=== PATIENT | male | born 1960 | race Caucasian/White ===

== ENCOUNTER 2020-01-27 20:26 | Emergency (ER) | payer OTHER, SELFPAY ==
--- NOTE | ~2020-01-27 | CT_ITS ---
EXAMINATION: CT abdomen pelvis w con DATE: 01/27/2020 21:10 INDICATION: Right flank pain. TECHNIQUE: Computed tomography (CT) of the abdomen and pelvis was performed without intravenous contr ast. Automated exposure control and iterative reconstruction technique were employed. The dose-length product was 618.22 mGy-cm. COMPARISON: CT abdomen and pelvis 03/21/2018 FINDINGS: The visualized portions of the lung bases demonstrate mild atelectasis. No pleural effusion . The heart size is normal. No pericardial effusion. The liver is normal. There are changes of cholec ystectomy. The spleen, pancreas, and adrenal glands are normal. There are 4 stones in right kidney me asuring up to 2 mm. There is mild right hydronephrosis and hydroureter. There is a 4 mm cyst in left kidney. There is a 2 mm stone in the bladder. There are small bilateral inguinal hernias containing f at. There are no dilated loops of bowel. The appendix is normal. There are no pathologically enlarged lymph nodes. There is no free intraperitoneal fluid. There is mild lumbar spondylosis. IMPRESSION: 1. 2 mm stone in the bladder. Mild right hydronephrosis and hydroureter, likely from recent stone pas chelsy. 2. Small nonobstructing right kidney stones. Reviewed, dictated and finalized at location A. IMPRESSION: 1. 2 mm stone in the bladder. Mild right hydronephrosis and hydroureter, likely from recent stone passage. 2. Small nonobstructing right kidney stones.
[2020-01-27 20:38] VITALS: BP 162/91; PULSE 74; RESP 18; TEMP 36.5; O2SAT 100
--- NOTE | 2020-01-27 20:48 | ED.ABDPAIN ---
HPI - Abdominal Pain General Chief Complaint: Urogenital-Male Stated Complaint: R flank pain Time Seen by Provider: 01/27/20 20:38 History of Present Illness HPI narrative: Patient presents with a friend for right flank pain for an hour and a half. He had a kidney stone 2-1/2 years ago. He has had several kidney stones. He has never needed surgery or stent for stones. He says the pain is very high but does not give a number. He does not have any nausea or vomiting. History of left hip surgery. He does not smoke cigarettes, drinks some alcohol, does not do drugs. 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 He has previously seen Dr. Naylor for urology. MD elicited complaint: flank pain Pertinent past history: kidney stones Onset (ago): hour(s) Pain Consistency: constant Location: R flank Severity: severe Relieving factors: nothing Associated symptoms: denies other symptoms Related Data Allergies Allergy/AdvReac Type Severity Reaction Status Date / Time ciprofloxacin Allergy Unknown Unknown Verified 11/22/19 07:33 niacin Allergy Unknown unknown Verified 11/22/19 07:33 Review of Systems Review of Systems: Narrative: CONSTITUTIONAL: Denies fever, chills, or sweats. EYES: Denies visual changes, redness, or discharge. ENT: Denies rhinorrhea, congestion, sore throat, or otalgia. CARDIOVASCULAR: Denies chest pain, palpitations, or edema. RESPIRATORY: Denies cough or dyspnea. GASTROINTESTINAL: He has severe abdominal pain, but not nausea, vomiting, or diarrhea. GENITOURINARY: Denies dysuria or hematuria. SKIN: Denies rash or itching. MUSCULOSKELETAL: Denies back pain, joint pain, or myalgia. NEUROLOGIC: Denies headache, numbness, or weakness. . All systems reviewed & are unremarkable except as noted in HPI and below PMFSH Past Medical History Medical History Benign prostatic hyperplasia without lower urinary tract symptoms Hyperlipidemia Kidney stones Migraine, unspecified, not intractable, without status migrainosus Nonalcoholic steatohepatitis ([place]) Type 2 diabetes mellitus without complication, without long-term current use of insulin A1C 5.8 on 10-19-19 Surgical History Surgical History History of cholecystectomy 2003 History of hip surgery Left 2000 Social History Social History Smoking status: Former smoker Smoking end date: 07/11/88 Alcohol intake: never Substance use: never Substance use type: does not use Additional living arrangements comments: [facility] Additional occupation/education comments: Self Gender identity (if verbalized by the patient): Male Spiritual care concerns: No Agree to blood products: Yes Exam Narrative: Exam Narrative: GENERAL: Well-appearing, well-nourished, and in no acute distress. Shaking his right leg. HEAD: Normocephalic, atraumatic. EYES: PERRLA and EOMI. ENT: Nares clear, no rhinorrhea or epistaxis. Mucous membranes moist. NECK: Supple. CHEST: Clear to auscultation. No respiratory distress. HEART: Regular rate and rhythm. No murmur heard. Normal peripheral pulses. ABDOMEN: Soft, nontender, nondistended, normal active bowel sounds. EXTREMITIES: Normal range of motion. No edema. SKIN: Warm, dry, no rash. NEURO: No focal deficits. Alert and oriented x3. PSYCH: Anxious. Course Reevaluation(s) Reevaluation #1: [id number] with the patient at 20 1:28 PM. He is feeling much better. The CAT scan shows a 2 mm stone in his bladder. He has previously see Dr. Naylor for his urologist. I recommended that he follow-up with him again. Date: 01/27/20 Time: 21:28 Vital Signs Vital signs: Vital Signs Temperature 97.7 F 01/27/20 20:38 Pulse Rate 74 01/27/20 20:38 Respiratory Rate 18 01/27/20 20:38 Blood Pressure 162/91 H 01/27/20 20:38 Pulse Oximetry 100 01/27/20 20
[2020-01-27] MEDS: TAMSULOSIN HCL 0.4 MG CAPSULE PO (20:51)
[2020-01-27] MEDS: MORPHINE SULFATE 4 MG/ML INJ IV PUSH (20:52)
[2020-01-27] MEDS: SODIUM CHLORIDE 0.9% IV 1,000 ML 999 ML IV CONT (20:52)
[2020-01-27 20:57] LABS: Basophils Absolute Auto 0.1 K/mm3 (0.0-0.1); Basophils Percent Auto 0.6 % (0.2-1.2); Eosinophils Absolute Auto 0.3 K/mm3 (0-0.3); Eosinophils Percent Auto 2.2 % (0-4.4); Hematocrit 42.1 % (42.0-52.0); Hemoglobin 14.3 g/dL (14.0-18.0); Immature Granulocyte Absolute 0.04 K/mm3 (0.00-0.031); Immature Granulocyte Percent A 0.3 % (0-0.5); Lymphocytes Absolute Auto 4.48 K/mm3 (0.9-3.2); Lymphocytes Percent Auto 37.1 % (18.3-44.2); Mean Corpuscular Hemoglobin 31.6 pg (26-34); Mean Corpuscular Volume 92.9 fl (80-100); Mean Platelet Volume 9.8 fl (7.4-10.4); Monocytes Absolute Auto 0.9 K/mm3 (0.1-0.6); Monocytes Percent Auto 7.3 % (2.6-8.5); Neutrophils Absolute Auto 6.3 K/mm3 (1.3-6.7); Neutrophils Percent Auto 52.5 % (45.5-73.1); Platelet Count Result 365 k/mm3 (150-375); Red Blood Count 4.53 M/mm3 (4.6-6.20); Red Cell Distribution Width 12.4 % (11.5-14.5); White Blood Count 12.1 K/mm3 (4.5-10.0)
[2020-01-27 21:05] LABS: Estimated CRCL calculation 38 ml/min; Estimated Glomerular Filt Rate 37
[2020-01-27 21:09] LABS: Alanine Aminotransferase 47 U/L (4-50); Albumin Level 4.7 g/dL (3.5-5.1); Alkaline Phosphatase 114 U/L (38-126); Aspartate Amino Transferase 37 U/L (17-59); Bilirubin,Total 0.5 mg/dL (0.2-1.3); Blood Urea Nitrogen 19 mg/dL (9-20); Calcium 9.4 mg/dL (8.4-10.2); Carbon Dioxide 32 mmol/L (22-30); Chloride 98 mmol/L (98-107); Estimated CRCL calculation 38 ml/min; Estimated Glomerular Filt Rate 37; Glucose 139 mg/dL (75-110); Potassium 3.8 mmol/L (3.4-5.0); Sodium 140 mmol/L (137-145)
[2020-01-27 22:17] LABS: Add Urine Microscopic? NO; Appearance Urine Clear (Clear); Bilirubin Urine Negative (Negative); Blood Urine Negative (Negative); Color Urine Colorless (Yellow); Glucose Urine UA Negative (Negative); Ketones Urine Negative (Negative); Leukocyte Esterase Ur Negative LEU/UL (Negative); Nitrate Urine Negative (Negative); Protein Urine Negative (Negative); Specific Grav Ur 1.023 (1.001-1.035); Urobilinogen Urine Negative mg/dL (<2.0)
[2020-01-27 22:25] VITALS: BP 164/95; PULSE 72; RESP 16; TEMP 36.6; O2SAT 98
== END 2020-01-27 22:25 | disposition home or self-care (01) ==
PROVIDERS: Emergency Provider Emergency Medicine; PCP Family Medicine
DX: N13.2 Hydronephrosis with renal and ureteral calculous obstruction (principal); N40.0 Benign prostatic hyperplasia without lower urinary tract symptoms; E78.5 Hyperlipidemia, unspecified; Z87.442 Personal history of urinary calculi; K75.81 Nonalcoholic steatohepatitis (NASH); E11.9 Type 2 diabetes mellitus without complications; Z87.891 Personal history of nicotine dependence
CPT/HCPCS: 36415; 74177; 80053; 81003; 85025; 96361; 96365; 96375; 99284; A9270; J0696; J2270; J7030; Q9967